=== PATIENT | female | born 1985 | race African-American/Black ===

== ENCOUNTER 2017-04-09 08:08 | Day surgery (SDC) | payer OTHER ==
[2017-04-09 08:45] VITALS: BMI 23.3
[2017-04-09] MEDS ORDERED: Promethazine HCl 25 MG/ML VIAL IM/IV PRN (09:07)
--- NOTE | 2017-04-09 09:28 | PRG ---
DATE OF SERVICE: 04/09/2017 TIME OF EVALUATION: 08:50 TIME OF DICTATION: 09:08 LOCATION: Labor and Delivery triage. This is a patient of Dr. Petra Middleton. REASON FOR EVALUATION: Suspected contractions at term. HISTORY OF PRESENT ILLNESS: This is a 31-year-old -[place] G3, P0 at 38 weeks and 5 days by stated EDC who presents with contractions since yesterday at 21:00. She denies any issues . She has good movement and denies vaginal bleeding, leakage of fluid, headaches or visual ch anges. REVIEW OF SYSTEMS: Complete review of systems was checked and is otherwise negative unless specifie d in the HPI. PAST PSYCHOLOGICAL HISTORY: Significant for bipolar, not currently on medications, but is stable an d doing well. She also has a history of anxiety, also not on medications. She has a history of Tyl enol overdose at age 20 and therefore cannot take Tylenol products. She states that while she is no t on medication for these conditions, she has had counseling and is doing well. There is no acute s uicidal ideation. PAST SURGICAL HISTORY: Negative. ALLERGIES: None, although ACETAMINOPHEN is listed as a contraindication to her use based on her pas t history. PHYSICAL EXAMINATION: VITAL SIGNS: Her blood pressure is 128/68, pulse is in the 80s, and temperature is 98.7. GASTROINTESTINAL: Clinically, she is having some discomforts with contractions, but is in no acute distress. Abdomen is gravid and size consistent with dates. GENITOURINARY: Uterus is soft, but firm with contractions. Cervical examination reveals a cervix o f 1 cm dilation, 50% effacement, -3 station, posterior cervical position. Bag of water is intact. There is also no evidence of vaginal bleeding. There are no vulvovaginal lesions. The estimated weight is approximately 6-1/2 pounds. The heart monitor shows heart tones of 140s to 150s and they are category 1. There is m oderate variability and there were accelerations present on review. Tocodynamometer does show contr actions about every 1-4 minutes. The contraction amplitude on tocodynamometer is high, but this ref lects the patient's pain status. ASSESSMENT: This is a 31-year-old G3, P0 at 38 weeks and 5 days, patient of Dr. Petra Middleton, in the latent phase of labor, 1 cm. PLAN: 1. The patient is without acute psychological concern at this time. 2. Offered pain medication. 3. As she is only 1 cm dilated, but migdalia regularly, we will place her on labor and delivery office for 2 hours to see if she progresses. If there is any evidence of cervical change or if the patient requires admission for pain management, then we will admit her to Dr. Middleton. 4. Observe for now.
--- NOTE | 2017-04-09 11:14 | PRG ---
DATE OF SERVICE: 04/09/2017 FOLLOWUP CERVICAL EXAMINATION NOTE In brief, the patient has been observed in Labor and Delivery for labor progress. She remains at 1 cm dilation after 2 hours of labor obs. As she is only in the latent phase and only 1 cm and in no acute distress, we have elected to discharge her home with labor precautions. She may also return t manju Middleton's office later in the afternoon if required or return back to Labor and Delivery for re assessment. I have also ordered for Stadol and Phenergan to be given as an intramuscular injection x1 if necessary for outpatient symptomatic pain relief.
== END 2017-04-09 11:15 | disposition home or self-care (01) ==
LOC: L&D/OP 08:08 → SDC 08:08 → L&D/OP 11:15
PROVIDERS: ATTEND Family Medicine
DX: O47.1 False labor at or after 37 completed weeks of gestation (principal); O99.353 Diseases of the nervous system complicating pregnancy, third trimester; F31.9 Bipolar disorder, unspecified; F41.9 Anxiety disorder, unspecified; Z3A.38 38 weeks gestation of pregnancy; Z79.899 Other long term (current) drug therapy
CPT/HCPCS: 96372; J0595; J2550

== ENCOUNTER 2017-04-09 16:44 | Inpatient (IN) | payer OTHER ==
[2017-04-09] MEDS ORDERED: LR / Pitocin 40 units/1000 ml 1,000 ML ONE (16:49)
[2017-04-09] MEDS ORDERED: Lidocaine 1% (PF) 30 ML VIAL ONE (16:49)
[2017-04-09] MEDS ORDERED: Penicillin G Potassium 5 MILL.UNITS VIAL ONE (16:56)
[2017-04-09] MEDS ORDERED: Sodium Chloride 0.9% 100 ML ONE (16:56)
[2017-04-09] MEDS ORDERED: Docusate 100 MG CAP PO PRN (17:00)
[2017-04-09] MEDS ORDERED: Lidocaine 1% (PF) 30 ML VIAL SC PRN (17:00)
[2017-04-09] MEDS ORDERED: Ondansetron HCl/PF 4 MG/2 ML Vial IVP PRN ×2 (17:00→21:19)
[2017-04-09] MEDS ORDERED: Promethazine HCl 25 MG/ML VIAL IM PRN (17:00)
[2017-04-09] MEDS ORDERED: Penicillin G Potassium 5 MILL.UNITS in Sodium Chloride 0.9% 100 ML IVPB SCH (17:00)
[2017-04-09] MEDS ORDERED: Ibuprofen 800 MG TAB PO PRN (17:00)
[2017-04-09] MEDS ORDERED: HYDROcodone/Acetaminophen 5/325 mg Tablet PO PRN ×2 (17:00→21:19)
[2017-04-09] MEDS ORDERED: Lactated Ringer's 1,000 ML IV SCH (17:00)
[2017-04-09] MEDS ORDERED: Misoprostol 200 MCG TAB PR PRN (17:00)
[2017-04-09] MEDS ORDERED: Acetaminophen/Codeine 30-300mg Tablet PO PRN ×2 (17:00→21:19)
[2017-04-09 17:09] VITALS: BMI 22.8
[2017-04-09 17:24] LABS: Hematocrit 45.6 % (36.0-47.0); Mean Platelet Volume 8.9 fL (7.4-10.4); Red Blood Cell (RBC) Count 5.43 mill/uL (4.20-5.40); White Blood Cell (WBC) Count 9.2 thou/uL (4.8-10.8)
[2017-04-09] MEDS: LR / Pitocin 40 units/1000 ml 1,000 ML IV PRN ×2 (18:31→20:40)
[2017-04-09] MEDS: Penicillin G 2.5 MILL.units 2.5 MILL.UNITS in Premix Bag 1 BAG IVPB SCH ×2 (19:06→22:25)
[2017-04-09] MEDS ORDERED: Preparation H Ointment 28 GM TUBE PR PRN (21:19)
[2017-04-09] MEDS ORDERED: Milk Of Magnesia 30 ML UDCUP PO PRN (21:19)
[2017-04-09] MEDS ORDERED: diphenhydrAMINE 25 MG CAP PO PRN (21:19)
[2017-04-09] MEDS ORDERED: Bisacodyl 10 MG SUPP PR PRN (21:19)
[2017-04-09] MEDS ORDERED: LR / Pitocin 40 units/1000 ml 1,000 ML IV SCH (21:19)
[2017-04-09] MEDS ORDERED: Benzocaine/Menthol 20-0.5% 60 ML CAN TOP PRN (21:19)
[2017-04-09] MEDS ORDERED: Lanolin Ointment 7 GM TUBE TOP PRN (21:19)
[2017-04-09] MEDS ORDERED: traMADol HCl 50 MG TAB PO PRN ×2 (22:01→22:02)
[2017-04-09] MEDS: Ibuprofen 800 MG TAB PO SCH (22:39)
[2017-04-09] MEDS: Docusate (Surfak) 240 MG CAP PO SCH (22:44)
[2017-04-09] MEDS ORDERED: Docusate (Surfak) 240 MG CAP PO SCH (22:45)
[2017-04-10] MEDS: Ibuprofen 800 MG TAB PO SCH ×3 (06:17→21:25)
[2017-04-10 06:36] LABS: Hematocrit 41.8 % (36.0-47.0); Mean Platelet Volume 8.8 fL (7.4-10.4); Red Blood Cell (RBC) Count 4.96 mill/uL (4.20-5.40); White Blood Cell (WBC) Count 14.9 thou/uL (4.8-10.8)
[2017-04-10] MEDS: Ferrous Sulfate 325 MG TAB PO SCH ×2 (08:36→15:37)
[2017-04-10] MEDS: Prenatal Vitamin 1 TAB PO SCH (08:39)
[2017-04-10] MEDS: Docusate (Surfak) 240 MG CAP PO SCH ×2 (08:39→21:25)
[2017-04-10 20:14] VITALS: BP 125/78
[2017-04-11] MEDS: Ibuprofen 800 MG TAB PO SCH ×2 (06:16→15:07)
[2017-04-11 10:39] VITALS: TEMP 98.3
[2017-04-11] MEDS: Ferrous Sulfate 325 MG TAB PO SCH (10:39)
[2017-04-11] MEDS: Docusate (Surfak) 240 MG CAP PO SCH (10:48)
[2017-04-11] MEDS: Prenatal Vitamin 1 TAB PO SCH (10:48)
== END 2017-04-11 15:40 | disposition home or self-care (01) | DRG 775 ==
LOC: L&D 16:44 → 3SE 21:02
PROVIDERS: ADMIT Family Medicine; ATTEND Family Medicine
PROC: 10E0XZZ Delivery of Products of Conception, External Approach (ICD-10-PCS; principal; 2017-04-09)
PROC: 0HQ9XZZ Repair Perineum Skin, External Approach (ICD-10-PCS; 2017-04-09)
DX: O71.4 Obstetric high vaginal laceration alone (principal); O99.824 Streptococcus B carrier state complicating childbirth; Z3A.38 38 weeks gestation of pregnancy; Z37.0 Single live birth
CPT/HCPCS: 36415; 85027; 86780; 87340; 96372; J0595; J2001; J2540; J2550; J7050

== ENCOUNTER 2018-11-18 17:49 | Emergency (ER) | payer BC, OTHER | END 2018-11-18 18:20 | disposition home or self-care (01) | LOC: SCSER 17:49 | DX: M54.32 Sciatica, left side (principal) | CPT/HCPCS: 99283 ==